=== PATIENT | female | born 1965 | race Caucasian/White ===

== ENCOUNTER 2018-05-30 18:54 | Inpatient (IN) | payer OTHER ==
[~2018-05-30] VITALS: Ht 160 cm; Wt 53.5 kg
== END 2018-06-03 18:12 | disposition home or self-care (01) | DRG 392 ==
LOC: ER 18:54 → SEC-K 05-31 09:32 → MEDJ 05-31 10:04
DX: K57.32 Diverticulitis of large intestine without perforation or abscess without bleeding (principal); L03.313 Cellulitis of chest wall

== ENCOUNTER 2019-04-28 09:55 | Outpatient (CLI) | payer OTHER | END 2019-04-28 09:58 | disposition home or self-care (01) | LOC: TOM 09:55 | DX: K57.32 Diverticulitis of large intestine without perforation or abscess without bleeding (principal) ==

== ENCOUNTER 2019-07-11 11:48 | Emergency (ER) | payer OTHER ==
[~2019-07-11] VITALS: Ht 154.9 cm; Wt 53.5 kg
[2019-07-11] MEDS ORDERED: AROMASIN25 MG (12:17)
== END 2019-07-11 16:19 | disposition home or self-care (01) ==
LOC: ER 11:48
DX: K58.8 Other irritable bowel syndrome (principal)

== ENCOUNTER 2020-05-16 07:44 | Day surgery (SDC) | payer OTHER ==
[~2020-05-16 07:44] MED LIST: AROMASIN25 MG
[2020-05-16] MEDS ORDERED: AMOX1TAB5 PO (12:21)
== END 2020-05-16 13:35 | disposition home or self-care (01) ==
LOC: AMB-ENDOS 07:44
PROVIDERS: ATTEND Surgery
DX: K62.89 Other specified diseases of anus and rectum (principal); Z20.828 Contact with and (suspected) exposure to other viral communicable diseases

== ENCOUNTER 2020-07-15 11:00 | Inpatient (IN) | payer OTHER ==
[~2020-07-15] VITALS: Ht 152.4 cm; Wt 54.0 kg
[~2020-07-15 11:00] MED LIST changes: +AMOX1TAB5 PO
[2020-07-15] MEDS ORDERED: BIOTIN5 MG PO (12:35)
[2020-07-15] MEDS ORDERED: XALATAN OP (12:35)
[2020-07-15] MEDS ORDERED: SOMA250 MG PO (12:35)
[2020-07-15] MEDS ORDERED: ALEVE220 M1 PO (12:35)
[2020-07-15] MEDS ORDERED: MAXIMUM D3325 MCG PO (12:36)
[2020-07-22] MEDS ORDERED: DICLOFENAC POTA50 MG (07:54)
[2020-07-22] MEDS ORDERED: LATANOPROST2.5 ML (07:55)
[2020-07-22] MEDS ORDERED: DORZOLAMIDE-TIM10 ML (07:55)
[2020-07-26] MEDS ORDERED: LASIX20 MG PO (08:35)
[2020-07-26] MEDS ORDERED: INTESTINEX680 M1 PO (08:36)
[2020-07-26] MEDS ORDERED: ULTRACET PO (08:36)
[2020-07-26] MEDS ORDERED: TAMS0.4C PO (08:38)
== END 2020-07-26 11:13 | disposition home or self-care (01) | DRG 331 ==
LOC: O/R 07-22 05:28 → SURH 07-22 07:00 → O/R 07-22 11:36 → SURG 07-22 15:01
PROVIDERS: ADMIT Surgery; ATTEND Surgery
PROC: 0DBP4ZZ Excision of Rectum, Percutaneous Endoscopic Approach (ICD-10-PCS; 2020-07-22)
PROC: 0DBN4ZZ Excision of Sigmoid Colon, Percutaneous Endoscopic Approach (ICD-10-PCS; principal; 2020-07-22 07:00)
DX: K57.32 Diverticulitis of large intestine without perforation or abscess without bleeding (principal); K58.8 Other irritable bowel syndrome; N99.89 Other postprocedural complications and disorders of genitourinary system; D64.9 Anemia, unspecified

== ENCOUNTER 2020-08-22 05:38 | Inpatient (IN) | payer OTHER ==
[~2020-08-22 05:38] MED LIST changes: +ALEVE220 M1 PO; +BIOTIN5 MG PO; +DICLOFENAC POTA50 MG; +DORZOLAMIDE-TIM10 ML; +INTESTINEX680 M1 PO; +LASIX20 MG PO; +LATANOPROST2.5 ML; +MAXIMUM D3325 MCG PO; +SOMA250 MG PO; +TAMS0.4C PO; +ULTRACET PO; +XALATAN OP
[2020-08-22] MEDS ORDERED: ANTI-GAS166 MG (10:57)
[2020-08-22] MEDS ORDERED: OMEPRAZOLE MAGN20 MG (10:57)
== END 2020-08-25 11:54 | disposition home or self-care (01) | DRG 392 ==
LOC: AMB-ENDOS 05:38 → SURG 08:58 → O/R 08:58 → AMB-ENDOS 10:00 → SURG 11:42
PROVIDERS: ADMIT Surgery; ATTEND Surgery
PROC: 0D7P8ZZ Dilation of Rectum, Via Natural or Artificial Opening Endoscopic (ICD-10-PCS; principal; 2020-08-22)
PROC: BW21Y0Z Computerized Tomography (CT Scan) of Abdomen and Pelvis using Other Contrast, Unenhanced and Enhanced (ICD-10-PCS; 2020-08-23)
DX: K57.30 Diverticulosis of large intestine without perforation or abscess without bleeding (principal); K51.90 Ulcerative colitis, unspecified, without complications; K62.4 Stenosis of anus and rectum; D64.9 Anemia, unspecified; R33.8 Other retention of urine

== ENCOUNTER 2021-04-17 07:55 | Day surgery (SDC) | payer OTHER ==
[~2021-04-17 07:55] MED LIST changes: +ANTI-GAS166 MG; +OMEPRAZOLE MAGN20 MG
== END 2021-04-17 14:00 | disposition home or self-care (01) ==
LOC: AMB-ENDOS 07:55
PROVIDERS: ATTEND Surgery
DX: K62.89 Other specified diseases of anus and rectum (principal); Z20.822 Contact with and (suspected) exposure to COVID-19

== ENCOUNTER 2021-04-21 12:16 | Emergency (ER) | payer OTHER ==
[~2021-04-21] VITALS: Ht 154.9 cm; Wt 53.1 kg
[2021-04-21] MEDS ORDERED: ULTRACET PO (18:09)
[2021-04-21] MEDS ORDERED: PEPCID20 MG PO (18:09)
[2021-04-21] MEDS ORDERED: LEVSIN0.125 MG PO (18:09)
== END 2021-04-21 18:20 | disposition home or self-care (01) ==
LOC: ER 12:16
DX: R10.9 Unspecified abdominal pain (principal); Z03.818 Encounter for observation for suspected exposure to other biological agents ruled out

== ENCOUNTER 2022-02-21 09:13 | Emergency (ER) | payer OTHER ==
[~2022-02-21] VITALS: Ht 154.9 cm; Wt 53.5 kg
[~2022-02-21 09:13] MED LIST changes: +LEVSIN0.125 MG PO; +PEPCID20 MG PO
[2022-02-21] MEDS ORDERED: ZADITOR5 ML (10:09)
== END 2022-02-21 15:19 ==
LOC: ER 09:13
DX: N64.4 Mastodynia (principal); Z88.8 Allergy status to other drugs, medicaments and biological substances; Z91.013 Allergy to seafood; Z85.3 Personal history of malignant neoplasm of breast

== ENCOUNTER 2023-05-18 09:24 | Emergency (ER) | payer OTHER ==
[~2023-05-18] VITALS: Ht 154.9 cm; Wt 54.0 kg
[~2023-05-18 09:24] MED LIST changes: +ZADITOR5 ML
[2023-05-18 10:31] LABS: HEMOGLOBIN 12.7 g/dL (12.0-15.00); MEAN CELL VOLUME 89.6 fL (80.00-100.00); MEAN CORPUSCULAR HEMOGLOBIN 30.8 pg (27.00-32.0); MEAN CORPUSCULAR HGB CONC 34.3 g/dl (32.0-36.0); PLATELET COUNT 355 K/uL (150-450); RED BLOOD COUNT 4.13 M/uL (4.00-6.00); RED CELL DISTRIBUTION WIDTH 13.4 % (11.5-14.5)
[2023-05-18 11:05] LABS: URINE APPEARANCE Clear; URINE BILIRRUBIN Negative (NEGATIVE); URINE BLOOD Negative; URINE COLOR Yellow; URINE GLUCOSE Negative (NEGATIVE); URINE LEUKOCYTE Negative; URINE NITRATE Negative; URINE PROTEIN Negative (NEGATIVE); URINE UROBILINOGEN 0.2 E.U./dl
[2023-05-18 11:06] LABS: URINE BACTERIA 32.7 uL (0.0-1933)
[2023-05-18 11:07] LABS: BILIRUBIN TOTAL 0.85 mg/dL (0.3-1.2); CALCIUM 9.4 mg/dL (8.5-10.1); CREATININE SERUM 0.63 mg/dL (0.55-1.02); GFR 97.75; GLOBULINA 3.9 G/DL (2.4-3.5); POTASSIUM 3.82 mEq/L (3.5-5.1); TOTAL PROTEIN 7.9 gm/dL (6.4-8.2)
[2023-05-18 11:21] LABS: URINE EPITHELIAL CELLS 1.3 uL (0.0-38.8); URINE RBC 1.8 uL (0.0-20.8)
== END 2023-05-18 12:01 | disposition home or self-care (01) ==
LOC: ER 09:25
PROVIDERS: General Practice
DX: K80.50 Calculus of bile duct without cholangitis or cholecystitis without obstruction (principal); Z91.013 Allergy to seafood; Z88.8 Allergy status to other drugs, medicaments and biological substances

== ENCOUNTER 2024-06-07 08:43 | Emergency (ER) | payer OTHER ==
[~2024-06-07] VITALS: Ht 154.9 cm; Wt 50.8 kg
[2024-06-07 09:26] VITALS: BP 105/67; O2SAT 100
[2024-06-07] MEDS ORDERED: COMBIGAN EYE DRO5 ML OP (09:29)
[2024-06-07] MEDS ORDERED: ATIVAN0.5 M1 PO (09:30)
[2024-06-07] MEDS ORDERED: CITALOPRAM HBR20 MG PO (09:30)
[2024-06-07] MEDS ORDERED: 0.9 % SODIUM CHLORIDE 1,000 ML IV STA (09:54)
[2024-06-07] MEDS ORDERED: FAMOtidine 10 MG/ML (4ML VIAL) IV STA (09:54)
[2024-06-07] MEDS ORDERED: MAG HYDROX/ALUMINUM HYD/SIMETH 30 ML BLIST.PACK PO STA (09:55)
[2024-06-07] MEDS ORDERED: ONDANSETRON HCL 2 MG/ML VIAL IV STA (09:55)
[2024-06-07] MEDS ORDERED: HYOSCYAMINE SULFATE 0.125 MG TAB.SUBL SL ONE (10:00)
[2024-06-07 10:12] LABS: HEMATOCRIT 37.9 % (36.0-45.00); MEAN CELL VOLUME 90.8 fL (80.00-100.00); MEAN CORPUSCULAR HEMOGLOBIN 31.2 pg (27.00-32.0); MEAN CORPUSCULAR HGB CONC 34.3 g/dl (32.0-36.0); PLATELET COUNT 306 K/uL (150-450); RED BLOOD COUNT 4.17 M/uL (4.00-6.00)
[2024-06-07 10:32] LABS: CALCIUM 9.2 mg/dL (8.5-10.1); CREATININE SERUM 0.7 mg/dL (0.55-1.02); GFR 86.25; POTASSIUM 4.14 mEq/L (3.5-5.1)
[2024-06-07 11:01] LABS: URINE APPEARANCE Clear; URINE BILIRRUBIN Negative (NEGATIVE); URINE BLOOD Negative; URINE COLOR Yellow; URINE GLUCOSE Negative (NEGATIVE); URINE KETONE Negative (NEGATIVE); URINE LEUKOCYTE Trace; URINE NITRATE Negative; URINE PROTEIN Negative (NEGATIVE); URINE UROBILINOGEN 0.2 E.U./dl
[2024-06-07 11:05] LABS: URINE BACTERIA 31.8 uL (0.0-1933); URINE EPITHELIAL CELLS 1.8 uL (0.0-38.8)
[2024-06-07 11:16] LABS: URINE RBC 1.7 uL (0.0-20.8)
== END 2024-06-07 12:54 | disposition home or self-care (01) ==
LOC: ER 08:46
PROVIDERS: General Practice
DX: R10.12 Left upper quadrant pain (principal); Z88.8 Allergy status to other drugs, medicaments and biological substances; Z91.013 Allergy to seafood